=== PATIENT | female | born 1985 | race Two or more races ===

== ENCOUNTER 2024-12-12 17:06 | Emergency (ER) | payer OTHER ==
[~2024-12-12] VITALS: Ht 167.6 cm; Wt 86.6 kg
[2024-12-12 17:14] VITALS: TEMP 97.9
--- NOTE | 2024-12-12 17:34 | Physician Documentation ---
History of Present Illness Chief Complaint: Abdominal Pain Stated Complaint: ABDOMINAL PAIN Source: patient, family Mode of Arrival: POV Exam Limitations: no limitations HPI Patient in with right upper quadrant and epigastric pain that has been intermittent over the past couple of weeks. She has not noticed if it is related to anything. Pain is moderate. It does wrap around into her back. No history of belly surgery. She still has her gallbladder. No chest pain. No nausea vomiting, diarrhea or constipation. Medication Reconciliation Allergies: Coded Allergies: No Known Allergies (Unverified , 12/12/24) Past Medical History Past Medical History: Hypothyroidism Review of Systems All Other Systems at this time: Reviewed and Negative Physical Exam Vital Signs: Temperature: 97.9, Heart Rate: 89, Respiratory Rate: 14, BP: 102/72, Pulse Oximetry: 100, Weight: 86.600 Oxygen Flow Rate: 0 Physical Exam General: Alert and oriented x4, well-appearing, well-nourished, no acute distress HEENT: Normocephalic, atraumatic, no visible or palpable masses or depression, extraocular movements intact, PERRLA, no scleral icterus, neck is supple and nontender, mucous membranes moist Heart: Regular rate and rhythm, no murmurs, rubs or gallops Lungs: Clear to auscultation bilaterally, normal work of breathing Abdomen: Soft, nontender, no palpable masses, normal bowel sounds Back: Spine is without deformity or tenderness, no CVA tenderness Extremities: Full range of motion, no acute deformity, peripheral pulses intact, no cyanosis or edema Musculoskeletal: Normal gait, normal tone Neurologic: Cranial nerves 2-12 are intact, reflexes normal Psychiatric: Alert and oriented x4, judgment and insight normal, normal mood and affect Skin: Good turgor, no rashes Progress Results/Orders Results/Orders Orders - ESME CHAKRABORTY Ultrasound Of Abdomen (12/12/24 ) Vital Signs 12/12/24 17:14 Temp 97.9 Pulse 89 Resp 14 B/P (MAP) 102/72 Pulse Ox 100 O2 Flow Rate 0 Medical Decision Making Additional Comments Differential includes but isn't limited to: Cholelithiasis, cholecystitis, colitis, pneumonia, pancreatitis, dehydration, electrolyte derangement, constipation Departure Disposition: HOME / SELF CARE / HOMELESS Impression: Primary Impression: Abdominal pain Qualified Codes: R10.13 - Epigastric pain Additional Impression Text Patient in with right upper quadrant and epigastric pain. No significant tenderness on exam. Ultrasound and CT negative. Labs unremarkable. All labs and imaging reviewed by me. Imaging confirmed by Radiology. May be due to gastritis or GERD. Patient does eat a lot of spicy food. Recommending stopping spicy food over the next couple weeks and starting her on Prilosec. She is to avoid any ibuprofen and can use Tylenol for pain. Discharging home in good condition. Follow up with PCP if not improving or return if new or worsening symptoms. Condition: Stable Discharge Instructions: Abdominal Pain (Nonspecific), Gastritis, Adult Additional Instructions: Avoid all spicy food over the next couple of weeks and take Prilosec 30 minutes before breakfast. Follow up with your doctor if not improving or return here if new or worsening symptoms. You can use Tylenol for pain but avoid ibuprofen. Referrals: NO PRIMARY CARE PROVIDER (PCP) Prescriptions Omeprazole (Prilosec) 40 Mg Capsule 1 CAP PO QAM for 30 Days, #30 CAP Prov: WARREN CUETO MD 12/12/24 Additional Comment Medical Screen Exam This 39-year-old female presents with right upper quadrant pain progressively worsening over the past few weeks worse after meals VITALS: Reviewed and as above. GENERAL: Alert, nontoxic appearing, no apparent distress. RESPIRATORY: No increased work of breathing, no respiratory distress, speaking in full clear sentences MSE performed in triage and patient placed in available ED room The note accurately reflects work and decisions made by me.LIT Crum 12/12/24 17:34 Signature Scribe Signature: No scribe Attestation: No scribe ESME CHAKRABORTY Dec 12, 2024 17:34 WARREN CUETO MD Dec 12, 2024 20:47
[2024-12-12 18:12] LABS: BASOPHILS # (AUTO) 0.1 X10'3 (0-0.2); BASOPHILS % (AUTO) 0.7 % (0-1); EOSINOPHILS # (AUTO) 0.2 X10'3 (0-0.9); MEAN PLATELET VOLUME 11.5 FL (7.4-10.4); MONOCYTES # (AUTO) 0.9 X10'3 (0-0.9); PLATELET COUNT 199 X10'3 (140-440); RED BLOOD COUNT 4.24 X10'6 (4.20-5.60)
[2024-12-12 18:26] LABS: EOSINOPHILS % (AUTO) 1.9 % (0-6); HEMATOCRIT 33.7 % (35.0-45.0); HEMOGLOBIN 10.7 g/dl (12.0-16.0); LYMPHOCYTES % (AUTO) 37.3 % (21-51); MEAN CORPUSCULAR HEMOGLOBIN 25.2 PG (27.0-31.0); MEAN CORPUSCULAR HGB CONC 31.8 g/dL (33.0-36.5); MEAN CORPUSCULAR VOLUME 79.4 FL (78-98); MONOCYTES % (AUTO) 8.7 % (2-12); NEUTROPHILS # (AUTO) 5.5 X10'3 (1.8-7.7); NEUTROPHILS % (AUTO) 51.4 % (42-75); RED CELL DISTRIBUTION WIDTH 16.6 % (11.5-14.5); WHITE BLOOD COUNT 10.7 X10'3 (4.5-11.0)
--- NOTE | 2024-12-12 18:27 | RADIOLOGY REPORT ---
Procedure: US ULTRASOUND OF [facility] Study Date and Requested Time: 12/12/2024 05:53 PM History: Right upper quadrant pain Comparison: None Technique: Multiple high resolution teague-scale images obtained of the right upper quadrant of the abd omen with color Doppler for evaluation of blood flow and vascularity as indicated. Findings: Liver normal in size, measuring 14.4 cm in length, with homogenous echotexture and normal contours. N o evidence of focal hepatic lesions, intrahepatic or extrahepatic ductal dilatation. Common bile duct measures 0.4 cm in diameter. Gallbladder unremarkable with no evidence of abnormal wall thickening, gallstones, biliary sludge, or pericholecystic fluid. Negative sonographic Kelley's sign. Pancreas is obscured by bowel gas Right kidney measures 10.5 cm in length, with normal contours, echotexture, and cortical thickness. N o evidence of hydronephrosis, calculi, cystic or solid renal lesions. Partially visualized inferior vena cava unremarkable. Impression: Pancreas is obscured by bowel gas. Otherwise, Unremarkable sonographic study of the right upper quad rant of the abdomen.
[2024-12-12 18:36] LABS: ALANINE AMINOTRANSFERASE 27 U/L (12-78); ALBUMIN 3.8 G/DL (3.4-5.0); ALKALINE PHOSPHATASE 78 IU/L (46-116); ANION GAP 9 (8-16); ASPARTATE AMINO TRANSFERASE 15 U/L (10-37); BILIRUBIN,TOTAL 0.4 MG/DL (0.1-1.0); BLOOD UREA NITROGEN 12 MG/DL (7-18); CALCIUM 8.8 MG/DL (8.5-10.1); CHLORIDE 105 MMOL/L (99-107); GLUCOSE 86 MG/DL (70-104); LIPASE 37 U/L (16-77); POTASSIUM 4.9 MMOL/L (3.5-5.1); SODIUM 141 MMOL/L (135-145); TOTAL CARBON DIOXIDE 26.8 MMOL/L (24-32); TOTAL PROTEIN 7.5 G/DL (6.4-8.2); eCRCL 87 ML/MIN; eGFR 79 ML/MIN
[2024-12-12 18:48] LABS: PLATELET ESTIMATE NORMAL
[2024-12-12 18:49] LABS: ANISOCYTOSIS FEW; LARGE PLATELETS FEW; MICROCYTOSIS FEW
[2024-12-12] MEDS ORDERED: iohexol 300mg/ml 100ml inj. ONE (18:52)
[2024-12-12 18:56] LABS: BILIRUBIN,URINE NEGATIVE (Neg); CLARITY,URINE CLEAR (Clear); COLOR,URINE YELLOW (Yellow); GLUCOSE, URINE NEGATIVE (Neg); KETONES,URINE NEGATIVE (Neg); LEUKOCYTE ESTERASE ,URINE SMALL (Neg); NITRITES, URINE NEGATIVE (Neg); OCCULT BLOOD,URINE NEGATIVE (Neg); PROTEIN,URINE NEGATIVE (Neg); URINE HCG NEGATIVE (NEG); UROBILINOGEN,URINE 0.2 E.U/dL (0.2-1.0)
[2024-12-12 19:03] LABS: UA COLLECTION TYPE CLN CATCH MIDSTREAM
[2024-12-12 19:17] LABS: SQUAMOUS EPITHELIAL CELL,UR MODERATE /LPF (FEW)
[2024-12-12 19:18] LABS: BACTERIA,URINE FEW /HPF (Neg); RBC,URINE 0-2 /HPF (0-2)
[2024-12-12] MEDS: ketorolac trometh 30MG/ML vial 30 MG/ML VIAL IV ONE (19:23)
--- NOTE | 2024-12-12 20:40 | RADIOLOGY REPORT ---
Exam: CT CT ABDOMEN PELVIS W/ IV CONTRAST History: ruq epigastric pain 2 weeks Comparison Study: None TECHNIQUE: A digital middle school pe teacher image was obtained. During the uneventful, intravenous administration of c ontrast material, multislice data acquisition was obtained through the abdomen and pelvis. The data s et was subsequently reconstructed into axial images. Images reviewed on a wrist examination is an exa mination of axial and multiplanar reformations using a variety of window levels and settings. RADIATION DOSE: DLP 1299.49 mGy.cm; CTDI vol 23.09 mGy. Findings: Lungs: The lung bases are clear. Heart: No cardiomegaly or pericardial effusion. Liver: Unremarkable. Gallbladder: Unremarkable. Spleen: Unremarkable Pancreas: Unremarkable Adrenals: Unremarkable Kidneys: Unremarkable GI tract: Unremarkable : 3.2 cm left ovarian cyst. Vasculature: Unremarkable Lymphadenopathy: Absent Peritoneum: No ascites Musculoskeletal: Unremarkable Soft tissues: Unremarkable Impression: 1. No acute abdominopelvic abnormalities.
[2024-12-12] MEDS ORDERED: OMEP40CA21 PO (20:55)
[2024-12-12 21:06] VITALS: BP 110/81; PULSE 81; RESP 14; O2SAT 98
== END 2024-12-12 21:07 | disposition home or self-care (01) ==
LOC: ER 17:07
DX: R10.11 Right upper quadrant pain (principal); R10.13 Epigastric pain; E03.9 Hypothyroidism, unspecified
CPT/HCPCS: 36415; 74177; 76700; 80053; 81001; 81025; 83690; 85008; 85025; 87088; 99285; Q9967; 99284